=== PATIENT | female | born 1940 | race Caucasian/White ===

== ENCOUNTER 2018-11-14 16:27 | Emergency (ER) | payer MEDICARE, BC ==
[2018-11-14 17:22] VITALS: BP 133/46; PULSE 82
[2018-11-14] MEDS ORDERED: Sodium Chloride 0.9% 10 ML Syringe FLUSH PRN (17:58)
[2018-11-14 18:20] LABS: ANION GAP 15.2
[2018-11-14] MEDS ORDERED: Ketorolac 30 MG/ML SDV IVPUSH ONE (18:36)
[2018-11-14] MEDS ORDERED: Ondansetron 4 MG/2 ML SDV IV ONE (18:36)
--- NOTE | 2018-11-14 18:45 | EDM.PDOC ---
"Scribed by Chely Salazar 11/14/18 [id number] for Mauri Acevedo MD <Mauri Acevedo - Last Filed: 11/14/18 18:41> ED HPI GENERAL MEDICAL PROBLEM - General Chief Complaint: Gastrointestinal Problem Stated Complaint: LEFT SIDE PAIN/NAUSEA Time Seen by Provider: 11/14/18 17:59 Source of Information: Reports: Patient, RN, RN Notes Reviewed History Limitations: Reports: No Limitations - History of Present Illness INITIAL COMMENTS - FREE TEXT/NARRATIVE: Patient presents to ER with c/o LLQ abdominal pain with nausea. Pt reports a history of diverticulitis. Patient thinks her diverticulitis is flaring up. Patient states that the left side of abdomen is sore and severely painful at times. Patient complains of nausea. She also states stools are loose, but states this is normal for her. No vomiting. Patient denies dysuria, fevers or chills. Onset: Gradual Duration: Getting Worse Location: Reports: Abdomen Quality: Reports: Ache Severity: Moderate Improves with: Reports: None Worsens with: Reports: None Associated Symptoms: Reports: No Other Symptoms Left Abdomen Pain Score (Numeric/FACES): 4 - Related Data Allergies Allergy/AdvReac Type Severity Reaction Status Date / Time No Known Allergies Allergy Verified 11/14/18 17:22 Home Meds: Home Meds Aspirin 81 mg PO DAILY 03/07/16 [History] Levothyroxine [Synthroid] 88 mcg PO DAILY 03/07/16 [History] Cholecalciferol (Vitamin D3) [Vitamin D3] 1,000 unit PO DAILY 07/25/16 [History] Latanoprost [Xalatan 0.005% Ophth Soln] 1 drop EYEBOTH BEDTIME 07/25/16 [History ] Losartan/Hydrochlorothiazide [Losartan-HCTZ 100-25 MG] 1 tab PO DAILY 07/25/16 [ History] Multivitamin [Multiple Vitamins] 1 tab PO DAILY 07/25/16 [History] Naproxen Sodium [Aleve] 2 tab PO ASDIRECTED PRN 07/25/16 [History] SUMAtriptan [Imitrex] 50 mg PO ASDIRECTED PRN 07/25/16 [History] amLODIPine Besylate/Benazepril [Amlodipine-Benazepril 5-20 MG] 1 cap PO BID [History] Past Medical History HEENT History: Reports: Glaucoma, Impaired Vision Cardiovascular History: Reports: Hypertension Respiratory History: Reports: None Gastrointestinal History: Reports: Diverticulosis Genitourinary History: Reports: None UNIVERSITY EXTENSION SPECIALIST History: Reports: Other UNIVERSITY EXTENSION SPECIALIST History: hx hysterectomy Musculoskeletal History: Reports: Fracture (Left wrist) Neurological History: Reports: None Psychiatric History: Reports: None Endocrine/Metabolic History: Reports: Hypothyroidism Hematologic History: Reports: None Immunologic History: Reports: None Oncologic (Cancer) History: Reports: None Dermatologic History: Reports: None - Infectious Disease History Infectious Disease History: Reports: None - Past Surgical History Head Surgeries/Procedures: Reports: None HEENT Surgical History: Reports: Cataract Surgery Female Surgical History: Reports: Breast Biopsy, Hysterectomy Social & Family History - Family History Family Medical History: Noncontributory - Tobacco Use Smoking Status *Q: Never Smoker - Caffeine Use Caffeine Use: Reports: Coffee, Soda - Recreational Drug Use Recreational Drug Use: No - Living Situation & Occupation Occupation: Retired ED ROS GENERAL - Review of Systems Review Of Systems: ROS reveals no pertinent complaints other than HPI. ED EXAM, GI/ABD - Physical Exam Exam: See Below Exam Limited By: No Limitations General Appearance: Alert, WD/WN, No Apparent Distress Eyes: Bilateral: Normal Appearance (No scleral icterus) Throat/Mouth: Normal Inspection, Normal Voice, No Airway Compromise Head: Atraumatic, Normocephalic Neck: Normal Inspection Respiratory/Chest: No Respiratory Distress Cardiovascular: Regular Rate, Rhythm GI/Abdominal Exam: Normal Bowel Sounds, Soft, No Distention, Tender (tender at LLQ). No: Guarding, Rigid, Rebound (Female) Exam: Deferred Rectal (Female) Exam: Deferred Back Exam: Normal Inspection, Full Range of Motion. No: CVA Tenderness (L), CVA Tenderness (R) Extremities: Normal Inspection Neurological: Alert, Oriented, No Motor/Sensory Deficits Psychiatric: Normal Affect, Normal Mood Skin Exam: Warm, Dry, Intact, Normal Color, No Rash Course - Vital Signs Last Recorded V/S: Last Vital Signs Temp 36.9 C 11/14/18 17:21 Pulse 82 11/14/18 17:21 Resp 18 11/14/18 17:21 BP 133/46 L 11/14/18 17:21 Pulse Ox 95 11/14/18 17:21 - Orders/Labs/Meds Orders: Active Orders 24 hr Category Date Time Status Peripheral IV Care [RC] . DIRECTED Care 11/14/18 17:58 Active Abdomen Pelvis wo Cont [CT] Urgent Exams 11/14/18 18:35 Taken CULTURE URINE [RM] Stat Lab 11/14/18 18:20 Received Ciprofloxacin [Ciprofloxacin HCl] Med 11/14/18 19:39 Once 500 mg PO ONETIME ONE Sodium Chloride 0.9% [Saline Flush] Med 11/14/18 17:58 Active 10 ml FLUSH ASDIRECTED PRN Peripheral IV Insertion Adult [OM.PC] Stat Oth 11/14/18 17:58 Ordered Medication Orders Ciprofloxacin (Ciprofloxacin Hcl) 500 mg PO ONETIME ONE Stop: 11/14/18 19:40 Sodium Chloride (Saline Flush) 10 ml FLUSH ASDIRECTED PRN PRN Reason: Keep Vein Open Last Admin: 11/14/18 18:33 Dose: 10 ml Labs: Laboratory Tests 11/14/18 11/14/18 11/14/18 Range/Units 17:38 17:38 17:38 WBC 5.6 (5.0-10.0) 10^3/uL RBC 3.94 L (4.2-5.4) 10^6/uL Hgb 12.3 (12.0-16.0) g/dL Hct 37.5 (37.0-47.0) % MCV 95.2 (80-100) fL MCH 31.2 (27.0-34.0) pg MCHC 32.8 L (33.0-35.0) g/dL Plt Count 189 (150-450) 10^3/uL Neut % (Auto) 55.7 (42.2-75.2) % Lymph % (Auto) 29.9 (20.5-50.1) % [place] % (Auto) 12.8 H (2-8) % Eos % (Auto) 0.9 L (1.0-3.0) % Baso % (Auto) 0.7 (0.0-1.0) % Sodium 141 (135-145) mmol/L Potassium 3.2 L (3.6-5.0) mmol/L Chloride 102 (101-111) mmol/L Carbon Dioxide 27.0 (21.0-31.0) mmol/L Anion Gap 15.2 BUN 30 H (7-18) mg/dL Creatinine 1.0 (0.6-1.3) mg/dL Est Cr Clr Drug Dosing 40.68 mL/min Estimated GFR (MDRD) 54 BUN/Creatinine Ratio 30.00 Glucose 95 (74-105) mg/dL Lactic Acid 0.8 (0.5-2.2) mmol/L Calcium 10.2 (8.4-10.2) mg/dl Total Bilirubin 0.9 (0.2-1.0) mg/dL AST 25 (10-42) IU/L ALT 15 (10-60) IU/L Alkaline Phosphatase 67 (42-121) IU/L C-Reactive Protein (0.0-1.3) mg/dL Total Protein 7.3 (6.7-8.2) g/dl Albumin 4.1 (3.2-5.5) g/dl Globulin 3.2 Albumin/Globulin Ratio 1.28 Amylase 56 (28-100) U/L Lipase 33 (22-51) U/L Urine Color (YELLOW) Urine Appearance (CLEAR) Urine pH (5.0-9.0) Ur Specific [place] (1.005-1.030) Urine Protein (NEGATIVE) Urine Glucose (UA) (NEGATIVE) Urine Ketones (NEGATIVE) Urine Occult Blood (NEGATIVE) Urine Nitrite (NEGATIVE) Urine Bilirubin (NEGATIVE) Urine Urobilinogen (0.2-1.0) mg/dL Ur Leukocyte Esterase (NEGATIVE) Urine RBC /HPF Urine WBC (0-5/HPF) /HPF Ur Epithelial Cells (NOT SEEN) /HPF Urine Bacteria (0-FEW/HPF) /HPF 11/14/18 11/14/18 Range/Units 17:38 18:20 WBC (5.0-10.0) 10^3/uL RBC (4.2-5.4) 10^6/uL Hgb (12.0-16.0) g/dL Hct (37.0-47.0) % MCV (80-100) fL MCH (27.0-34.0) pg MCHC (33.0-35.0) g/dL Plt Count (150-450) 10^3/uL Neut % (Auto) (42.2-75.2) % Lymph % (Auto) (20.5-50.1) % [place] % (Auto) (2-8) % Eos % (Auto) (1.0-3.0) % Baso % (Auto) (0.0-1.0) % Sodium (135-145) mmol/L Potassium (3.6-5.0) mmol/L Chloride (101-111) mmol/L Carbon Dioxide (21.0-31.0) mmol/L Anion Gap BUN (7-18) mg/dL Creatinine (0.6-1.3) mg/dL Est Cr Clr Drug Dosing mL/min Estimated GFR (MDRD) BUN/Creatinine Ratio Glucose (74-105) mg/dL Lactic Acid (0.5-2.2) mmol/L Calcium (8.4-10.2) mg/dl Total Bilirubin (0.2-1.0) mg/dL AST (10-42) IU/L ALT (10-60) IU/L Alkaline Phosphatase (42-121) IU/L C-Reactive Protein 0.5 (0.0-1.3) mg/dL Total Protein (6.7-8.2) g/dl Albumin (3.2-5.5) g/dl Globulin Albumin/Globulin Ratio Amylase (28-100) U/L Lipase (22-51) U/L Urine Color Yellow (YELLOW) Urine Appearance Slightly cloudy (CLEAR) Urine pH 6.0 (5.0-9.0) Ur Specific [place] 1.015 (1.005-1.030) Urine Protein Negative (NEGATIVE) Urine Glucose (UA) Negative (NEGATIVE) Urine Ketones Negative (NEGATIVE) Urine Occult Blood Trace-intact H (NEGATIVE) Urine Nitrite Negative (NEGATIVE) Urine Bilirubin Negative (NEGATIVE) Urine Urobilinogen 0.2 (0.2-1.0) mg/dL Ur Leukocyte Esterase Trace H (NEGATIVE) Urine RBC 0-5 /HPF Urine WBC 0-5 (0-5/HPF) /HPF Ur Epithelial Cells Rare (NOT SEEN) /HPF Urine Bacteria Rare (0-FEW/HPF) /HPF Meds: Medications Generic Name Dose Route Start Last Admin Trade Name Freq PRN Reason Stop Dose Admin Ciprofloxacin 500 mg 11/14/18 19:39 Ciprofloxacin Hcl PO 11/14/18 19:40 ONETIME ONE Sodium Chloride 10 ml 11/14/18 17:58 11/14/18 18:33 Saline Flush FLUSH 10 ml ASDIRECTED PRN Administration Keep Vein Open Discontinued Medications Generic Name Dose Route Start Last Admin Trade Name Maria Antonia PRN Reason Stop Dose Admin Ketorolac Tromethamine 30 mg 11/14/18 18:36 11/14/18 18:44 Toradol IVPUSH 11/14/18 18:37 30 mg ONETIME ONE Administration Ondansetron HCl 4 mg 11/14/18 18:36 11/14/18 18:42 Zofran IV 11/14/18 18:37 4 mg ONETIME ONE Administration - Re-Assessments/Exams Free Text/Narrative Re-Assessment/Exam: 11/14/18 19:00 Care of pt transferred to Rene MORALES at 1900HR shift change. Departure - Departure Disposition: Home, Self-Care 01 Clinical Impression: UTI (urinary tract infection) Qualifiers: Urinary tract infection type: site unspecified Hematuria presence: with hematuria Qualified Code(s): N39.0 - Urinary tract infection, site not specified ; R31.9 - Hematuria, unspecified - Discharge Information Instructions: Urinary Tract Infection, Adult, [id number] Forms: ED Department Discharge Care Plan Goals: The patient was advised of the examination and lab results during the visit. The patient was given an oral dose of Cipro while in the ED. The patient was discharged with a script for Cipro (500 mg) #9 to take 1 by mouth 2 times per day. If the patient has any additional symptoms or concerns, the patient should follow-up with her primary care facility or return to the emergency department. - My Orders Last 24 Hours: My Active Orders 11/14/18 19:39 Ciprofloxacin [Ciprofloxacin HCl] 500 mg PO ONETIME ONE - Assessment/Plan Last 24 Hours: My Active Orders 11/14/18 19:39 Ciprofloxacin [Ciprofloxacin HCl] 500 mg PO ONETIME ONE <Rene Aguiar - Last Filed: 11/14/18 19:43> Course - Radiology Interpretation Free Text/Narrative:: PROCEDURE INFORMATION: Exam: CT Abdomen and pelvis without contrast Exam date and time: 11/14/2018 7:02 PM Clinical history: 78 years old, female; Other: Llq pain with hematuria TECHNIQUE: Imaging protocol: Computed tomography of the abdomen and pelvis without contrast. Radiation optimization: All CT scans at this facility use at least one of these dose optimization techniques: automated exposure control; mA and/or kV adjustment per patient size (includes targeted exams where dose is matched to clinical indication); or iterative reconstruction. COMPARISON: No relevant prior studies available. FINDINGS: Lungs: There is mild scarring and atelectasis at the lung bases without acute findings. Mediastinum: A large hiatal hernia is present. Liver: Normal. No mass. Gallbladder and bile ducts: Normal. No calcified stones. No ductal dilation. Pancreas: Normal. No ductal dilation. Spleen: Normal. No splenomegaly. Adrenals: There is a 2.4 cm left adrenal nodule which favors an adenoma by Hounsfield units. Right adrenal gland is unremarkable. Kidneys and ureters: Bilateral parapelvic renal cysts are appreciated. Bilateral subcentimeter hypodense renal lesions are too small to characterize and indeterminate. Consider correlation with ultrasound if clinically warranted. No acute renal findings. No obstructive uropathy. Stomach and bowel: No bowel wall thickening, obstruction, or other acute pathology. Diffuse colonic diverticulosis is present. There is mildly excessive colonic stool content. Appendix: No evidence of appendicitis. Intraperitoneal space: Unremarkable. No free air. No significant fluid collection. STEPHANE STEVENS | Final Radiology Report CONFIDENTIALITY STATEMENT This report is intended only for use by the referring physician, and only in accordance with law. If you received this in error, call [phone]. Page 2 of 2 Vasculature: The vasculature demonstrates diffuse moderate atherosclerotic calcification. Lymph nodes: Unremarkable. No enlarged lymph nodes. Bladder: Unremarkable as visualized. Reproductive: There has been a hysterectomy. Bones/joints: No acute abnormality or aggressive osseous lesion. Soft tissues: Unremarkable. IMPRESSION: 1. Negative for acute abdominopelvic pathology. 2. Chronic/incidental findings as detailed above. COMMENT: Consistent with the [employer]'s Incidental Findings Committee Report (J Am Jenn Radiol 2010): Unless the patient's specific circumstances suggest otherwise , any liver lesion 0.5 cm or less, any cystic kidney lesion less than 1.0 cm, and/or any adrenal lesion 1.0 cm or less not otherwise characterized in this report as possessing suspicious or indeterminate imaging features is/are highly likely to be benign and do not require follow-up imaging or biopsy. Thank you for allowing us to participate in the care of your patient. Dictated and Authenticated by: Vamsi Palacios MD 11/14/2018 7:35 PM Central Time ([place] & [place]) - Re-Assessments/Exams Free Text/Narrative Re-Assessment/Exam: 11/14/18 19:40 Patient care taken over at shift change. Patient evaluation/documentation were reviewed. Agree with course of treatment. Departure - Departure Time of Disposition: 19:40 Condition: Fair - Discharge Information *PRESCRIPTION DRUG MONITORING PROGRAM REVIEWED*: Not Applicable *COPY OF PRESCRIPTION DRUG MONITORING REPORT IN PATIENT SUJATA: Not Applicable I have read and agree with the documentation that has been completed regarding this visit. By signing this record, I attest that the documentation was completed in my physical presence and is an accurate record of the encounter."
[2018-11-14] MEDS ORDERED: Ciprofloxacin 500 MG Tab PO ONE (19:39)
== END 2018-11-14 20:00 | disposition home or self-care (01) ==
LOC: DL.ED 16:27
DX: N39.0 Urinary tract infection, site not specified (principal); R31.9 Hematuria, unspecified; H40.9 Unspecified glaucoma; I10 Essential (primary) hypertension; E03.9 Hypothyroidism, unspecified; Z79.899 Other long term (current) drug therapy; Z79.82 Long term (current) use of aspirin; Z79.890 Hormone replacement therapy
CPT/HCPCS: 36415; 74176; 80053; 81001; 82150; 83605; 83690; 85025; 86140; 87086; 96374; 96375; 99283; A9270; J1885; J2405

== ENCOUNTER 2020-07-20 05:24 | Day surgery (SDC) | payer MEDICARE, BC ==
[~2020-07-20 05:24] MED LIST: Midazolam 1 MG/ML 2 ML SDV ONE; fentaNYL 100 MCG/2 ML SDV ONE
[2020-07-20] MEDS ORDERED: fentaNYL 100 MCG/2 ML SDV IV ONE ×3 (05:25→06:29)
[2020-07-20] MEDS ORDERED: Midazolam 1 MG/ML 2 ML SDV IV ONE ×2 (05:25→06:28)
[2020-07-20] MEDS ORDERED: Dextrose 5%-0.45% NaCl 1,000 ML IV SCH (05:45)
--- NOTE | 2020-07-20 07:29 | OR ---
DATE: 07/20/2020 PROCEDURE: Esophagogastroduodenoscopy and multiple pinch biopsies. INSTRUMENT USED: [id number]-HQ190 Olympus video panendoscope. PREMEDICATIONS: No oral topical anesthesia used. Fentanyl 75 mcg intravenous, Versed 1 mg intravenous. Nasal O2 cannula. The procedure was done under pulse oximetry, blood pressure recording and secretary office clerk. INDICATION: The patient with unexplained iron-deficiency anemia. DESCRIPTION OF PROCEDURE: Esophagogastroduodenoscopy is performed for detection of any active erosive lesions, Ojeda esophagus and/or malignancy also under consideration, H pylori status to be determined, small bowel biopsies to be obtained for celiac disease if indicated, endoscopic hemostasis therapy if needed. The scope was passed with ease. Adequate visualization of the esophagus was made from proximal to distal areas. No esophageal lesions identified. No uphill or downhill esophageal varices. No Sigrid-Alejandre tear noted. Tertiary contractions of the esophagus were noted, appears to be esophagus. No esophageal polyp or tumor mass identified. Large sliding hiatal hernia was noted along with Colt's erosions without bleeding from them. Gastric fundus examination by retroflexion showed no polypoid lesions. No gastric ulcer, malignant mass, or vascular ectasia identified. Duodenal bulb showed no ulcer. Visualized second part of the duodenum was unremarkable. Multiple pinch biopsies were taken from the gastric antrum and proximal body and sent for PyloriTek test for H pylori, and if negative in an hour, the tissue is to be sent for histopathology. No bleeding was noted from any of the visualized areas at the completion of examination. Photographs were taken of the duodenal bulb, gastric antrum, fundus, and distal esophagus. IMPRESSION: 1. Presbyesophagus. 2. Sliding hiatal hernia. 3. Colt's erosions. The patient tolerated the procedure well. [facility] /[id number]
[2020-07-20 09:09] VITALS: BP 104/62; PULSE 60
== END 2020-07-20 08:43 | disposition home or self-care (01) ==
LOC: DL.ENDO 05:24
PROVIDERS: ATTEND Internal Medicine Gastroenterology
DX: D50.9 Iron deficiency anemia, unspecified (principal); K44.9 Diaphragmatic hernia without obstruction or gangrene; K25.9 Gastric ulcer, unspecified as acute or chronic, without hemorrhage or perforation; I10 Essential (primary) hypertension; E03.9 Hypothyroidism, unspecified; R73.9 Hyperglycemia, unspecified; Z87.891 Personal history of nicotine dependence; Z98.890 Other specified postprocedural states
CPT/HCPCS: 87077; 88305; J2250; J3010; J7042

== ENCOUNTER 2020-11-16 05:55 | Day surgery (SDC) | payer MEDICARE, BC ==
[~2020-11-16 05:55] MED LIST changes: +Dextrose 5%-0.45% NaCl 1,000 ML IV SCH; -Midazolam 1 MG/ML 2 ML SDV ONE; +Sodium Chloride 0.9% 10 ML Syringe FLUSH PRN; -fentaNYL 100 MCG/2 ML SDV ONE
[2020-11-16] MEDS ORDERED: Midazolam 1 MG/ML 2 ML SDV IV ONE ×6 (05:56→06:47)
[2020-11-16] MEDS ORDERED: fentaNYL 100 MCG/2 ML SDV IV ONE ×3 (05:56→06:36)
[2020-11-16] MEDS ORDERED: fentaNYL 100 MCG/2 ML SDV ONE (06:00)
[2020-11-16] MEDS ORDERED: Midazolam 1 MG/ML 2 ML SDV ONE (06:00)
--- NOTE | 2020-11-16 07:53 | OR ---
DATE: 11/16/2020 PROCEDURE: Total colonoscopy, terminal ileoscopy, narrow-band imaging, and multiple pinch biopsies. INSTRUMENT USED: [id number]-H190DL Olympus video colonoscope. PREMEDICATIONS: Fentanyl 100 mcg intravenous, Versed 3 mg intravenous. Nasal O2 cannula. The procedure was done under pulse oximetry, BP recording, and cardiac monitoring. INDICATION: The patient with iron-deficiency anemia and intermittent chronic diarrhea unexplained and not responsive to medical measures. Colonoscopic examination is done for detection of any polypoid lesions and removal, biopsies to be obtained for any evidence of microscopic colitis, endoscopic hemostasis therapy if needed. DESCRIPTION OF PROCEDURE: Initial rectal exam showed external hemorrhoidal tags. Perianal diffuse erythema and lax anal sphincter. Rigid anoscopy showed small internal hemorrhoids without bleeding from them. The colonoscope was passed with ease. Numerous scattered diverticula were noted in the distal left colon along with deformity. The scope was passed with ease up to and beyond the ileocecal junction to visualize normal-appearing terminal ileum. NBI views were obtained. Photographs were taken. Multiple pinch biopsies were obtained and sent for histopathology. Photographs were taken of the normal-appearing cecum. No bleeding was noted from any of the visualized areas at the commencement of the examination. The bowel preparation was found to be adequate, [place] scale 3 in all the areas, total score 9. No stricture. No vascular ectasia. No large isolated ulcerations seen. No evidence of diffuse inflammatory bowel disease in the form of friability, contact bleeding, or ulcerations. No polyp or tumor mass identified. Probing the proximal sides of folds and flexures using adequate distention and clearing up the stool material, withdrawal of the scope was made. Multiple pinch biopsies were taken from the normal-appearing mucosa of the mid transverse colon, mid descending colon, and rectosigmoid, and sent for any histopathologic evidence of microscopic colitis. No bleeding was noted from any of the visualized areas at the completion of examination. IMPRESSION: 1. External and internal hemorrhoids. 2. Diverticulosis. The patient tolerated the procedure well. [facility] /[id number]
[2020-11-16 09:29] VITALS: BP 106/51; PULSE 54
== END 2020-11-16 09:06 | disposition home or self-care (01) ==
LOC: DL.ENDO 05:55
PROVIDERS: ATTEND Internal Medicine Gastroenterology
DX: K52.9 Noninfective gastroenteritis and colitis, unspecified (principal); D50.9 Iron deficiency anemia, unspecified; K64.9 Unspecified hemorrhoids; K64.8 Other hemorrhoids; K57.30 Diverticulosis of large intestine without perforation or abscess without bleeding; I10 Essential (primary) hypertension; E03.9 Hypothyroidism, unspecified; Z01.812 Encounter for preprocedural laboratory examination; Z20.822 Contact with and (suspected) exposure to COVID-19
CPT/HCPCS: 45380; 88305; J2250; J3010; J7042; U0002

== ENCOUNTER 2022-12-20 05:40 | Emergency (ER) | payer MEDICARE, BC ==
[2022-12-20] MEDS ORDERED: Sodium Chloride 0.9% 10 ML Syringe FLUSH PRN (05:46)
[2022-12-20 05:54] VITALS: PULSE 98
[2022-12-20 06:02] LABS: BASOPHILS PERCENT AUTO 0.2 % (0.0-1.0); EOSINOPHILS PERCENT AUTO 0.1 % (1.0-3.0); HEMATOCRIT 37.7 % (37.0-47.0); HEMOGLOBIN 13.2 g/dL (12.0-16.0); LYMPHOCYTES PERCENT AUTO 8.5 % (20.5-50.1); MEAN CORPUSCULAR HEMOGLOBIN 34.7 pg (27.0-34.0); MEAN CORPUSCULAR VOLUME 99.2 fL (80-100); MONOCYTES PERCENT AUTO 4.5 % (2-8); NEUTROPHILS PERCENT AUTO 86.7 % (42.2-75.2); PLATELET COUNT,PLT 181 10^3/uL (150-450); WHITE BLOOD CELL COUNT,WBC 10.4 10^3/uL (5.0-10.0)
[2022-12-20 06:03] VITALS: BP 134/56
[2022-12-20] MEDS ORDERED: Iopamidol 612 MG/ML 100 ML Bottle IVPUSH ONE (06:11)
[2022-12-20 06:21] LABS: LACTIC ACID 1.3 mmol/L (0.4-2.0)
[2022-12-20 06:22] LABS: APPEARANCE,URINE SLIGHTLY CLOUDY (CLEAR); BILIRUBIN,URINE SMALL (NEGATIVE); COLOR,URINE YELLOW (YELLOW); GLUCOSE,URINE NEGATIVE (NEGATIVE); KETONES,URINE 15 (NEGATIVE); LEUKOCYTE ESTERASE,URINE NEGATIVE (NEGATIVE); NITRITE,URINE NEGATIVE (NEGATIVE); OCCULT BLOOD,URINE TRACE-INTACT (NEGATIVE); PH,URINE 6.5 (5.0-9.0); PROTEIN,URINE 30 (NEGATIVE); UROBILINOGEN,URINE 0.2 mg/dL (0.2-1.0)
[2022-12-20 06:26] LABS: AMPHETAMINES,URINE NEGATIVE (NEGATIVE); BARBITURATES,URINE NEGATIVE (NEGATIVE); BENZODIAZEPINE,URINE NEGATIVE (NEGATIVE); MDMA (ECSTASY), URINE NEGATIVE (NEGATIVE); METHADONE,URINE NEGATIVE (NEGATIVE); METHAMPHETAMINES,URINE NEGATIVE (NEGATIVE); OPIATES,URINE NEGATIVE (NEGATIVE); OXYCODONE,URINE NEGATIVE (NEGATIVE); PHENCYCLIDINE,URINE NEGATIVE (NEGATIVE); TCA,URINE POSITIVE (NEGATIVE)
[2022-12-20 06:27] LABS: A/G RATIO 0.9; ALANINE AMINOTRANSFERASE,ALT 19 U/L (14-59); ALBUMIN 3.6 g/dL (3.4-5.0); ALKALINE PHOSPHATASE 77 U/L (46-116); ANION GAP 14.6 mEq/L (7-13); ASPARTATE AMNIOTRANSFERASE,AST 22 U/L (15-37); BILIRUBIN TOTAL 0.5 mg/dL (0.2-1.0); BLOOD UREA NITROGEN,BUN 25 mg/dL (7-18); CALCIUM 8.8 mg/dL (8.5-10.1); CARBON DIOXIDE,CO2 24 mmol/L (21-32); CHLORIDE,CL 104 mmol/L (98-107); GLUCOSE RANDOM 171 mg/dL (70-99); POTASSIUM,K 3.6 mmol/L (3.5-5.1); PROTEIN TOTAL,TP 7.5 g/dL (6.4-8.2); SODIUM,NA 139 mmol/L (136-145); TSH ULTRASENSITIVE 0.93 uIU/mL (0.36-3.74)
[2022-12-20 06:28] LABS: ESTIMATED GFR 57 mL/min (>=60); ETHANOL BLOOD MEDICAL < 3 mg/dL (0)
[2022-12-20 06:43] LABS: WBC,URINE 0-5 /HPF (0-5/HPF)
[2022-12-20 06:44] LABS: BACTERIA,URINE FEW /HPF (0-FEW/HPF); EPITHELIAL CELLS,URINE FEW /HPF (NOT SEEN); MUCUS,URINE MODERATE /LPF (NOT SEEN); RBC,URINE 0-5 /HPF (0-5)
== END 2022-12-20 08:40 ==
LOC: DL.ED 05:40
DX: R55 Syncope and collapse (principal); S09.90XA Unspecified injury of head, initial encounter; S00.83XA Contusion of other part of head, initial encounter; K52.9 Noninfective gastroenteritis and colitis, unspecified; H11.32 Conjunctival hemorrhage, left eye; K92.2 Gastrointestinal hemorrhage, unspecified; I10 Essential (primary) hypertension; E03.9 Hypothyroidism, unspecified; E66.9 Obesity, unspecified; Z68.24 Body mass index [BMI] 24.0-24.9, adult; Z79.899 Other long term (current) drug therapy; W18.30XA Fall on same level, unspecified, initial encounter; Y92.002 Bathroom of unspecified non-institutional (private) residence as the place of occurrence of the external cause
CPT/HCPCS: 36415; 70450; 70486; 74177; 80053; 80305-QW; 80307; 81001; 82272; 82947; 83605; 83735; 84443; 84484; 85025; 86850; 86900; 86901; 87040; 93005; 93010; 99285; Q9967

== ENCOUNTER 2024-01-10 10:05 | Emergency (ER) | payer MEDICARE, BC ==
[2024-01-10 10:33] LABS: BASOPHILS PERCENT AUTO 0.8 % (0.0-1.0); HEMATOCRIT 42.7 % (37.0-47.0); HEMOGLOBIN 13.9 g/dL (12.0-16.0); LYMPHOCYTES PERCENT AUTO 22.1 % (20.5-50.1); MEAN CORPUSCULAR HEMOGLOBIN 31.2 pg (27.0-34.0); MEAN CORPUSCULAR HGB CONC 32.6 g/dL (33.0-35.0); MONOCYTES PERCENT AUTO 11.6 % (2-8); NEUTROPHILS PERCENT AUTO 63.5 % (42.2-75.2); PLATELET COUNT,PLT 184 10^3/uL (150-450); RED BLOOD CELL COUNT 4.45 10^6/uL (4.2-5.4)
[2024-01-10 10:37] LABS: APPEARANCE,URINE SLIGHTLY CLOUDY (CLEAR); BILIRUBIN,URINE NEGATIVE (NEGATIVE); COLOR,URINE YELLOW (YELLOW); GLUCOSE,URINE NEGATIVE (NEGATIVE); KETONES,URINE NEGATIVE (NEGATIVE); LEUKOCYTE ESTERASE,URINE LARGE (NEGATIVE); NITRITE,URINE NEGATIVE (NEGATIVE); OCCULT BLOOD,URINE LARGE (NEGATIVE); PROTEIN,URINE NEGATIVE (NEGATIVE); UROBILINOGEN,URINE 0.2 mg/dL (0.2-1.0)
[2024-01-10 10:46] LABS: WBC,URINE PACKED /HPF (0-5/HPF)
[2024-01-10 10:47] LABS: BACTERIA,URINE FEW /HPF (0-FEW/HPF); EPITHELIAL CELLS,URINE FEW /HPF (NOT SEEN)
[2024-01-10 10:50] VITALS: BP 115/60; PULSE 74
[2024-01-10 10:53] LABS: ALBUMIN 3.6 g/dL (3.4-5.0); ANION GAP 11.9 mEq/L (7-13); BILIRUBIN TOTAL 0.4 mg/dL (0.2-1.0); BUN/CREATININE RATIO 24.7 (No establ ref range); CALCIUM 8.8 mg/dL (8.5-10.1); CREATININE 0.93 mg/dL (0.55-1.02); EST CRCL DRUG DOSING (CG) 38.58 mL/min; POTASSIUM,K 3.9 mmol/L (3.5-5.1); PROTEIN TOTAL,TP 7.3 g/dL (6.4-8.2)
== END 2024-01-10 10:48 | disposition home or self-care (01) ==
LOC: DL.ED 10:05
DX: N39.0 Urinary tract infection, site not specified (principal); I10 Essential (primary) hypertension; E78.00 Pure hypercholesterolemia, unspecified; E03.9 Hypothyroidism, unspecified; Z90.710 Acquired absence of both cervix and uterus; Z79.899 Other long term (current) drug therapy; Z79.890 Hormone replacement therapy
CPT/HCPCS: 36415; 80053; 81001; 85025; 87086; 99283

== ENCOUNTER 2024-07-04 10:48 | Emergency (ER) | payer MEDICARE, BC ==
[2024-07-04] MEDS: cefTRIAXone 2 GM Vial IVPUSH ONE (11:33)
[2024-07-04] MEDS: Sodium Chloride 0.9% 10 ML Syringe FLUSH PRN (11:33)
[2024-07-04 12:35] VITALS: BP 107/58; PULSE 87
== END 2024-07-04 11:50 | disposition home or self-care (01) ==
LOC: DL.ED 10:48
DX: A28.0 Pasteurellosis (principal); I10 Essential (primary) hypertension; E03.9 Hypothyroidism, unspecified; Z79.899 Other long term (current) drug therapy; Z79.890 Hormone replacement therapy; Z90.710 Acquired absence of both cervix and uterus
CPT/HCPCS: 96374; 99283-25; J0696

== ENCOUNTER 2024-08-10 10:10 | Inpatient (IN) | payer MEDICARE, BC ==
[2024-08-10 18:01] LABS: INR 1.6 (0.9-1.2)
[2024-08-10] MEDS: Potassium Chloride 10 MEQ Tab.ER PO SCH (20:00)
[2024-08-10] MEDS: Dorzolamide/Timolol 2%-0.5% Ophth Soln 10 ML Bottle EYERT SCH (21:36)
[2024-08-11 06:26] LABS: BASOPHILS PERCENT AUTO 0.4 % (0.0-1.0); EOSINOPHILS PERCENT AUTO 1.1 % (1.0-3.0); LYMPHOCYTES PERCENT AUTO 13.3 % (20.5-50.1); MONOCYTES PERCENT AUTO 12.9 % (2-8); NEUTROPHILS PERCENT AUTO 72.3 % (42.2-75.2); PLATELET COUNT,PLT 355 10^3/uL (150-450); RED BLOOD CELL COUNT 3.43 10^6/uL (4.2-5.4); WHITE BLOOD CELL COUNT,WBC 7.9 10^3/uL (5.0-10.0)
[2024-08-11 06:56] LABS: ALANINE AMINOTRANSFERASE,ALT 73.0 U/L (14-59); ASPARTATE AMNIOTRANSFERASE,AST 53.0 U/L (15-37); BILIRUBIN TOTAL 0.3 mg/dL (0.2-1.0); BLOOD UREA NITROGEN,BUN 30.0 mg/dL (7-18); CARBON DIOXIDE,CO2 32.0 mmol/L (21-32); CHLORIDE,CL 97.0 mmol/L (98-107); CREATININE 1.24 mg/dL (0.55-1.02); EST CRCL DRUG DOSING (CG) 28.44 mL/min; GLUCOSE RANDOM 126.0 mg/dL (70-99); POTASSIUM,K 5.0 mmol/L (3.5-5.1); PROTEIN TOTAL,TP 7.0 g/dL (6.4-8.2)
[2024-08-11 07:04] LABS: SODIUM,NA 134.0 mmol/L (136-145)
[2024-08-11 07:05] LABS: ESTIMATED GFR 43.0 mL/min (>=60)
[2024-08-11 07:06] LABS: A/G RATIO 0.37
[2024-08-11 07:28] LABS: INR 1.4 (0.9-1.2)
[2024-08-11] MEDS: Calcium Carbonate/Vitamin D3 1250 MG-5 MCG Tab PO SCH (08:55)
[2024-08-11] MEDS: Omeprazole 20 MG Cap.CR PO SCH (08:56)
[2024-08-11] MEDS: Furosemide 100 MG/10 ML SDV IVPUSH ONE (16:39)
[2024-08-12 06:45] LABS: BLOOD UREA NITROGEN,BUN 27.0 mg/dL (7-18); CARBON DIOXIDE,CO2 30.0 mmol/L (21-32); CHLORIDE,CL 96.0 mmol/L (98-107); CREATININE 1.14 mg/dL (0.55-1.02); EST CRCL DRUG DOSING (CG) 30.93 mL/min; GLUCOSE RANDOM 121.0 mg/dL (70-99); POTASSIUM,K 4.7 mmol/L (3.5-5.1)
[2024-08-12 06:50] LABS: SODIUM,NA 132.0 mmol/L (136-145)
[2024-08-12 06:52] LABS: ESTIMATED GFR 48.0 mL/min (>=60)
[2024-08-12 06:57] LABS: INR 1.3 (0.9-1.2)
[2024-08-13 07:03] LABS: INR 1.3 (0.9-1.2)
[2024-08-13] MEDS: Furosemide 40 MG/4 ML VIAL IVPUSH ONE (10:11)
[2024-08-14 06:33] LABS: BASOPHILS PERCENT AUTO 0.6 % (0.0-1.0); EOSINOPHILS PERCENT AUTO 1.1 % (1.0-3.0); LYMPHOCYTES PERCENT AUTO 17.2 % (20.5-50.1); MONOCYTES PERCENT AUTO 14.8 % (2-8); NEUTROPHILS PERCENT AUTO 66.3 % (42.2-75.2); PLATELET COUNT,PLT 284 10^3/uL (150-450); RED BLOOD CELL COUNT 3.50 10^6/uL (4.2-5.4); WHITE BLOOD CELL COUNT,WBC 6.4 10^3/uL (5.0-10.0)
[2024-08-14 06:51] LABS: BLOOD UREA NITROGEN,BUN 33.0 mg/dL (7-18); CARBON DIOXIDE,CO2 29.0 mmol/L (21-32); CHLORIDE,CL 96.0 mmol/L (98-107); CREATININE 1.41 mg/dL (0.55-1.02); EST CRCL DRUG DOSING (CG) 25.01 mL/min; GLUCOSE RANDOM 118.0 mg/dL (70-99); POTASSIUM,K 4.9 mmol/L (3.5-5.1); SODIUM,NA 133.0 mmol/L (136-145)
[2024-08-14 06:52] LABS: ESTIMATED GFR 37.0 mL/min (>=60)
[2024-08-14 13:31] LABS: INR 1.6 (0.9-1.2)
[2024-08-15 06:32] LABS: INR 1.9 (0.9-1.2)
[2024-08-15] MEDS: Warfarin** 1 MG TABLET PO ONE (17:22)
[2024-08-16 15:13] LABS: INR 2.0 (0.9-1.2)
[2024-08-16] MEDS: Warfarin** 1 MG TABLET PO ONE (17:10)
[2024-08-17 05:17] LABS: INR 2.1 (0.9-1.2)
[2024-08-17] MEDS: Warfarin** 1 MG TABLET PO ONE (09:46)
[2024-08-18 07:24] VITALS: BP 113/61; PULSE 62
[2024-08-18] MEDS: Warfarin** 1 MG TABLET PO ONE (09:51)
== END 2024-08-18 12:55 | disposition home or self-care (01) | DRG 948 ==
LOC: DL.MS 15:30 → UNDOADMIN 15:44
PROVIDERS: ADMIT Student in an Organized Health Care Education/Training Program; ATTEND Internal Medicine
DX: R53.81 Other malaise (principal); I50.32 Chronic diastolic (congestive) heart failure; D62 Acute posthemorrhagic anemia; E78.5 Hyperlipidemia, unspecified; E03.9 Hypothyroidism, unspecified; I34.0 Nonrheumatic mitral (valve) insufficiency; K44.9 Diaphragmatic hernia without obstruction or gangrene; I48.91 Unspecified atrial fibrillation; H40.9 Unspecified glaucoma; H54.7 Unspecified visual loss; E78.00 Pure hypercholesterolemia, unspecified; I11.0 Hypertensive heart disease with heart failure; K58.9 Irritable bowel syndrome, unspecified; G43.909 Migraine, unspecified, not intractable, without status migrainosus; F41.9 Anxiety disorder, unspecified; D50.9 Iron deficiency anemia, unspecified; Z87.891 Personal history of nicotine dependence; Z98.49 Cataract extraction status, unspecified eye; Z98.890 Other specified postprocedural states; Z79.01 Long term (current) use of anticoagulants; Z79.899 Other long term (current) drug therapy; Z90.710 Acquired absence of both cervix and uterus
CPT/HCPCS: 36415; 71045; 80048; 80053; 83735; 83880; 85025; 85610; 97110-GO; 97110-GP; 97161-GP; 97165-GO; 97530-GO; 97530-GP; 99306; 99309; 99316; A9270-GY; J1650; J1938

== ENCOUNTER 2024-12-15 11:51 | Emergency (ER) | payer MEDICARE, BC ==
[2024-12-15 12:15] LABS: BASOPHILS PERCENT AUTO 0.3 % (0.0-1.0); EOSINOPHILS PERCENT AUTO 2.6 % (1.0-3.0); LYMPHOCYTES PERCENT AUTO 40.4 % (20.5-50.1); MONOCYTES PERCENT AUTO 10.9 % (2-8); NEUTROPHILS PERCENT AUTO 45.8 % (42.2-75.2); PLATELET COUNT,PLT 155 10^3/uL (150-450); RED BLOOD CELL COUNT 4.76 10^6/uL (4.2-5.4); WHITE BLOOD CELL COUNT,WBC 5.8 10^3/uL (5.0-10.0)
[2024-12-15 12:38] LABS: A/G RATIO 0.9; ALANINE AMINOTRANSFERASE,ALT 18 U/L (14-59); ASPARTATE AMNIOTRANSFERASE,AST 19 U/L (15-37); BILIRUBIN DIRECT 0.1 mg/dL (0.0-0.2); BILIRUBIN INDIRECT 0.1; BILIRUBIN TOTAL 0.2 mg/dL (0.2-1.0); BLOOD UREA NITROGEN,BUN 25 mg/dL (7-18); CARBON DIOXIDE,CO2 29 mmol/L (21-32); CHLORIDE,CL 104 mmol/L (98-107); CREATININE 1.04 mg/dL (0.55-1.02); ESTIMATED GFR 53 mL/min (>=60); GLUCOSE RANDOM 109 mg/dL (70-99); POTASSIUM,K 3.7 mmol/L (3.5-5.1); PROTEIN TOTAL,TP 7.1 g/dL (6.4-8.2); SODIUM,NA 142 mmol/L (136-145)
[2024-12-15 12:42] LABS: INR 1.9 (0.9-1.2)
[2024-12-15 13:18] LABS: APPEARANCE,URINE CLEAR (CLEAR); GLUCOSE,URINE NEGATIVE (NEGATIVE); OCCULT BLOOD,URINE NEGATIVE (NEGATIVE)
[2024-12-15 13:29] LABS: EPITHELIAL CELLS,URINE FEW /HPF (NOT SEEN)
[2024-12-15 14:22] VITALS: BP 159/79; PULSE 72
== END 2024-12-15 13:50 | disposition home or self-care (01) ==
LOC: DL.ED 11:51
DX: R53.1 Weakness (principal); I48.91 Unspecified atrial fibrillation; E78.00 Pure hypercholesterolemia, unspecified; E03.9 Hypothyroidism, unspecified; Z88.0 Allergy status to penicillin; Z79.899 Other long term (current) drug therapy; Z79.890 Hormone replacement therapy
CPT/HCPCS: 36415; 71045; 80048; 80076; 81001; 84484; 85025; 85610; 87040; 93005; 93010; 99284; 99285